=== PATIENT | female | born 1945 | race Caucasian/White ===

== ENCOUNTER → 2020-10-06 11:46 | Outpatient (REF) | payer MEDICARE, OTHER, SELFPAY | LOC: ANHLAB 11:46 | PROVIDERS: PCP Family Medicine; Visit Provider Nurse Practitioner | DX: C44.40 Unspecified malignant neoplasm of skin of scalp and neck (principal) | CPT/HCPCS: 88305 ==

== ENCOUNTER → 2020-10-19 07:11 | Outpatient (REF) | payer MEDICARE, OTHER, SELFPAY | LOC: ANHLAB 07:11 | PROVIDERS: PCP Family Medicine; Visit Provider Nurse Practitioner | DX: C44.41 Basal cell carcinoma of skin of scalp and neck (principal) | CPT/HCPCS: 88305; 88331 ==